=== PATIENT | male | born 1975 | race Two or more races ===

== ENCOUNTER 2017-09-22 07:35 | Emergency (ER) | payer BC ==
[~2017-09-22] VITALS: Ht 182.9 cm; Wt 78.0 kg
[2017-09-22] MEDS ORDERED: DESL5TAB PO (07:44)
--- NOTE | 2017-09-22 07:55 | NUR ---
PATIENT HERE FOR C/O SWELLING ON AND NEAR LIP. DENIES TONGUE SWELLING, ITCHY THROAT, DIFFICULTY BREATHING, SOB, LIGHTHEADEDNESS OR NAUSEA.
--- NOTE | 2017-09-22 08:55 | NUR ---
DC AND FOLLOW UP INSTRUCTIONS GIVEN AND EXPLAINED BY DR GARCIA. PATIENT STATES HE UNDERSTANDS ALL INSTRUCTIONS.
== END 2017-09-22 09:15 | disposition home or self-care (01) ==
LOC: ER 07:36
DX: T78.3XXA Angioneurotic edema, initial encounter (principal); Z79.899 Other long term (current) drug therapy
CPT/HCPCS: A4663